=== PATIENT | male | born 1985 | race Two or more races ===

== ENCOUNTER → 2024-01-27 | Emergency (ER) | payer OTHER ==
[~2024-01-27] VITALS: Ht 177.8 cm; Wt 102.1 kg
[~2024-01-27] MED LIST: CHILDREN'S ASPI81 MG PO
== END | disposition left against medical advice (07) ==
LOC: ER 22:51
DX: Z53.21 Procedure and treatment not carried out due to patient leaving prior to being seen by health care provider (principal)